=== PATIENT | male | born 1980 | race Caucasian/White ===

== ENCOUNTER → 2020-10-04 | Outpatient (CLI) | payer BC, MEDICARE ==
[~2020-10-04] MED LIST: ABILIFY10 MG PO; ANUCORT-HC25 MG PR; CYMBALTA20 MG PO; MULTIVITAMINS1 EAC1 PO; NORCO 7.5-3251 EACH PO; PROBIOTIC1 EAC1 PO; SIMVASTATIN20 MG PO; SULINDAC200 MG PO; WELLBUTRIN SR150 MG PO; ZYRTEC10 M3 PO
== END ==
LOC: KOH-I 12:14
DX: R05 Cough (principal)
CPT/HCPCS: 71046

== ENCOUNTER → 2020-12-07 | Outpatient (CLI) | payer BC, MEDICARE | LOC: EXRD 11:35 | DX: N50.89 Other specified disorders of the male genital organs (principal) | CPT/HCPCS: 76870 ==

== ENCOUNTER → 2021-01-29 | Outpatient (CLI) | payer BC, MEDICARE | LOC: KOH-I 13:16 | DX: M79.672 Pain in left foot (principal); M79.671 Pain in right foot; M25.572 Pain in left ankle and joints of left foot; M25.571 Pain in right ankle and joints of right foot; M19.071 Primary osteoarthritis, right ankle and foot; M77.31 Calcaneal spur, right foot | CPT/HCPCS: 73610; 73630 ==

== ENCOUNTER → 2021-04-04 | Outpatient (CLI) | payer BC, MEDICARE | LOC: KOH-I 11:29 | DX: R05 Cough (principal); R91.8 Other nonspecific abnormal finding of lung field | CPT/HCPCS: 71046 ==

== ENCOUNTER → 2021-12-12 | Outpatient (CLI) | payer BC, MEDICARE | LOC: KOH-I 08:53 | DX: M50.322 Other cervical disc degeneration at C5-C6 level (principal) | CPT/HCPCS: 72040 ==

== ENCOUNTER → 2022-03-29 | Outpatient (CLI) | payer OTHER | LOC: KOH-I 08:00 | DX: R74.01 Elevation of levels of liver transaminase levels (principal); K76.0 Fatty (change of) liver, not elsewhere classified; N28.1 Cyst of kidney, acquired | CPT/HCPCS: 76705 ==